=== PATIENT | male | born 1970 | race Caucasian/White ===

== ENCOUNTER 2024-01-13 17:09 | Observation (INO) | payer OTHER, SELFPAY ==
[2024-01-13] VITALS (7 sets, daily range): BP systolic 90–123; BP diastolic 62–89; BMI 19.9
--- NOTE | 2024-01-13 13:23 | ED.GENMED ---
History of Present Illness
<Hyacinth Castañeda MD, Resident - Last Filed: 01/13/24 15:15>
General
Chief Complaint: Overdose Unintentional
Source: ambulance crew and police
Exam Limitations: non verbal-adult and altered mental status
Time Seen by Provider: 01/13/24 13:22
History of Present Illness
History of Present Illness:
53-year-old male unknown to [facility] the ER, was brought to the hospital by ambulance crew for possible unintentional overdose.
As per nurse and EMS signout, he was found unconscious by his Uber cart driver in the middle of his trip, which prompted Uber cart driver to call the police. Police did a sternal rub for which she was found to be responsive, and then called EMS who then gave
him 2 mg of intranasal Narcan for which the patient became responsive. Upon arrival to the ER patient was minimally responsive to our nurse, and admitted to have used heroin in the past, last use being greater than 2 months ago. He also told that
he had taken his methadone dose today. However when I went to see the patient he was not responsive to me, has muscle twitchings and is irritable. 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
I was not able to obtain any history from the patient.
If applicable-neuro sx onset
Onset of symptoms known: Yes
Date of onset of symptoms: 01/13/24
Time pt last seen normal is known: Yes
Date last time pt seen normal: 01/13/24
Past History
<Hyacinth Castañeda MD, Resident - Last Filed: 01/13/24 15:15>
Past History
ED Past Medical History: Other (Drug use disorder in the past.)
ED Past Surgical History: Other (Unable to obtain.)
Social History
Tobacco: Other (Unable to obtain.)
Family History
Family History: Other (Unable to obtain.)
Review of Systems
<Hyacinth Castañeda MD, Resident - Last Filed: 01/13/24 15:15>
Review of Systems
Unable to obtain full review of systems at this time due to: non-verbal
Other source history: ambulance crew
All Other Systems: Not applicable
Phy Exam
<Hyacinth Castañeda MD, Resident - Last Filed: 01/13/24 15:15>
General Physical Exam
General Presentation: no apparent distress
General Skin: warm and other ([place], no purpling or mottling appearance or pale appearance. Multiple healed ulcers noted on skin.)
General Habitus: normal
General Mental: appears intoxicated and other (Lethargic.)
General Hydration: dry mucous membranes and poor skin turgor
Eye Exam
Eye Exam: PERRL and EOMI
Eye Exam General: abnormal pupil: bilateral (Small but not constricted pupils not reactive to light)
Cardiovascular Exam
Cardiovascular Exam: regular rate/rhythm, no edema, no gallop, no JVD, no murmur and normal peripheral pulses
Heart Sounds: normal
Pulmonary Exam
Pulmonary Exam: lungs clear, no respiratory distress, no rales, no crackles and no rhonchi
Gastrointestinal Exam
Gastrointestinal Exam: normal bowel sounds, non tender, soft, no pulsatile mass and non distended
Neurological Exam
Neurological Exam: non verbal and other (Visible twitchings noted. No spasticity or flaccidity in the limbs.)
[place] Coma Scale
Eye Opening: To Pain
Verbal Response: Incomprehensible
Motor Response: Localizes to Pain
GCS Total Score: 9
Mental
Mental Status: appears sev intoxicated, responds to deep pain and unresponsive
Describe Speech: no response
<Satish Rodas DO - Last Filed: 01/13/24 16:19>
[place] Coma Scale
GCS Total Score: 9
Course
<Hyacinth Castañeda MD, Resident - Last Filed: 01/13/24 15:15>
Orders/Labs/Results
Orders:
Orders
01/13/24 13:28
Alcohol Urgent
Complete Blood Count/With Diff Urgent
Comprehensive Metabolic Panel Urgent
Drug Screen, Urine [Urine Drug Abuse Screen] Urgent
Date Specimen was Collected: 01/13/24
Time Specimen was Collected: 13:27
Fentanyl, Urine Urgent
Serum Drug Screen [S] Urgent
Urinalysis Reflex To Culture Urgent
Date Specimen was Collected: 01/13/24
Time Specimen was Collected: 13:27
Urine Microscopic Reflex Cult Urgent
01/13/24 13:41
Bedside Glucose- Treatment ONCE
Alcohol Stat
01/13/24 13:44
CT Head W/o Iv Contrast Stat
Comment:
Reason For Exam: unresponsive
01/13/24 13:46
Add On- LAB Urgent
Tests Added?: alcohol level
01/13/24 14:48
Add On- LAB Urgent
Tests Added?: alcohol
Abnormal Lab Results
01/13/24
13:28
RBC 4.23 L 10^6/uL
(4.70-6.10)
Hgb 12.2 L g/dL
(13.0-18.0)
Hct 35.0 L %
(39.0-52.0)
Monocytes % 10.7 H %
(1.7-9.3)
BUN 23 H mg/dl
(9-20)
Ur Occult Blood Reflex Trace A
(Negative)
Urine Methadone Screen Positive H
(Negative)
U Benzodiazepines Scrn Positive H
(Negative)
01/13/24 13:28
01/13/24 13:28
Vital Signs
Initial and Last Documented VS:
Initial Vital Signs
Temp Pulse Resp BP Pulse Ox
97.6 F 57 16 105/72 97
01/13/24 13:08 01/13/24 13:08 01/13/24 13:08 01/13/24 13:08 01/13/24 13:08
Last Documented Vital Signs
Temp Pulse Resp BP Pulse Ox
97.6 F 58 19 112/77 98
01/13/24 13:08 01/13/24 15:44 01/13/24 15:44 01/13/24 15:44 01/13/24 15:44
Comment
Comment:
Patient continues to remain unresponsive.
His vital signs are stable, pupils are still small-3 mm but not constricted. Sluggish reaction to light
Blood glucose [id number]-xb-care-normal.
Urine toxic drug screen positive for methadone and benzodiazepines.
Myoclonic jerks noted. -CT head obtained.
Hospital medicine consulted for admission.
<Satish Rodas, DO - Last Filed: 01/13/24 16:19>
Orders/Labs/Results
Orders:
Orders
01/13/24 13:28
Alcohol Urgent
Complete Blood Count/With Diff Urgent
Comprehensive Metabolic Panel Urgent
Drug Screen, Urine [Urine Drug Abuse Screen] Urgent
Date Specimen was Collected: 01/13/24
Time Specimen was Collected: 13:27
Fentanyl, Urine Urgent
Serum Drug Screen [S] Urgent
Urinalysis Reflex To Culture Urgent
Date Specimen was Collected: 01/13/24
Time Specimen was Collected: 13:27
Urine Microscopic Reflex Cult Urgent
01/13/24 13:41
Bedside Glucose- Treatment ONCE
Alcohol Stat
01/13/24 13:44
CT Head W/o Iv Contrast Stat
Comment:
Reason For Exam: unresponsive
01/13/24 13:46
Add On- LAB Urgent
Tests Added?: alcohol level
01/13/24 14:48
Add On- LAB Urgent
Tests Added?: alcohol
Abnormal Lab Results
01/13/24
13:28
RBC 4.23 L 10^6/uL
(4.70-6.10)
Hgb 12.2 L g/dL
(13.0-18.0)
Hct 35.0 L %
(39.0-52.0)
Monocytes % 10.7 H %
(1.7-9.3)
BUN 23 H mg/dl
(9-20)
Ur Occult Blood Reflex Trace A
(Negative)
Urine Methadone Screen Positive H
(Negative)
U Benzodiazepines Scrn Positive H
(Negative)
01/13/24 13:28
01/13/24 13:28
Vital Signs
Initial and Last Documented VS:
Initial Vital Signs
Temp Pulse Resp BP Pulse Ox
97.6 F 57 16 105/72 97
01/13/24 13:08 01/13/24 13:08 01/13/24 13:08 01/13/24 13:08 01/13/24 13:08
Last Documented Vital Signs
Temp Pulse Resp BP Pulse Ox
97.6 F 58 19 112/77 98
01/13/24 13:08 01/13/24 15:44 01/13/24 15:44 01/13/24 15:44 01/13/24 15:44
<Hyacinth Castañeda MD, Resident - Last Filed: 01/13/24 15:15>
MDM/Problems Addressed
Chronic conditions affecting care:
Unknown chronic conditions
Acute Exacerbation and/or Progression of Chronic Illness:
Unknown chronic conditions
<Hyacinth Castañeda MD, Resident - Last Filed: 01/13/24 15:15>
*Critical Care Note
Total Time (30-74mins, 75-104mins- exclusive of procedures): Not Applicable
<Hyacinth Castañeda MD, Resident - Last Filed: 01/13/24 15:15>
Comment
Comment:
Highly likely.
<Hyacinth Castañeda MD, Resident - Last Filed: 01/13/24 15:15>
Update Note
Update Note:
Hospital medicine consulted for admission.
ED Attending Note
<Hyacinth Castañeda MD, Resident - Last Filed: 01/13/24 15:15>
-
Portions of this chart may have been created with voice recognition software.� Occasional wrong word or��sound alike� substitutions may have occurred due to the inherent limitations of voice recognition software.
<Satish Rodas, - Last Filed: 01/13/24 16:19>
ED Attending Note
Patient seen and examined by attending physician: Yes
I performed the substantive portion of visit, reviewed & personally made and approve the management plan that is documented in note by myself or LEAH.: Yes
I performed a history and physical exam of patient and discussed management with resident, I reviewed resident's note and agree with documented findings and plan of care.: Yes
ED Attending Note:
I evaluated the patient at bedside approximately 20 minutes after patient arrival. The patient's pupils are approximately 3 mm but sluggish. He reportedly did have methadone and then became minimally responsive while in an Uber earlier. He did
receive intranasal Narcan prior to arrival. Blood sugar upon arrival was unremarkable. I look for old records in [employer] but he has never been here in the past. He also has some abnormal myoclonic jerking�CT imaging also to be obtained. On
reassessment at about 3:45 PM, there has been some improvement but still not well enough to be discharged.
Discharge Plan
Departure
Patient Disposition: Admit
Date of Disposition: 01/13/24
Time of Disposition: 15:14
Presentation/result/management discussed w/ accepting MD/DO: Hospitalist
Discharge Problem:
Accidental drug overdose
Interventions
Interventions:
*Risk Screen - Suicide Last Done: 01/13/24 13:22
*General Assessment Last Done: 01/13/24 13:21
*Neglect/Abuse Screening Last Done: 01/13/24 13:22
*ED COVID-19 Vaccine History Last Done: 01/13/24 13:21
ED- Cardiac Assessment Last Done: 01/13/24 13:22
ED- Neurological Assessment Last Done: 01/13/24 13:22
ED-Psychological Assessment Last Done: 01/13/24 13:22
ED- Pulmonary Assessment Last Done: 01/13/24 13:22
Discharge Date and Time
Print Language: TAJIK
[2024-01-13 13:43] LABS: % Basophils 0.3 % (0-2); % Eosinophils 5.5 % (0-6); % Immature Granulocytes 0.2 % (0-0.5); % Lymphocytes 30.3 % (20.5-51.1); % Monocytes 10.7 % (1.7-9.3); Absolute Eosinophils 0.3 10^3/uL (0-0.7); Absolute Lymphocytes 1.8 10^3/uL (1.2-3.4); Absolute Monocytes 0.6 10^3/uL (0.1-0.6); Absolute Neutrophils 3.1 10^3/uL (1.4-6.5); Hemoglobin 12.2 g/dL (13.0-18.0); Mean Corp Hgb Conc. 34.9 g/dL (33.0-37.0); Mean Corpuscular Hgb 28.8 pg (27.0-31.0); Mean Corpuscular Volume 82.7 fL (80.0-94.0); Mean Platelet Volume 9.5 fL (7.4-10.4); Nucleated Red Blood Cells % 0 % (-); Platelet Count 262 10^3/uL (130-400); Red Blood Cell Count 4.23 10^6/uL (4.70-6.10); Red Cell Dist. Width 12.6 % (11.5-14.5); White Blood Cell Count 5.8 10^3/uL (4.8-10.8)
[2024-01-13 13:52] LABS: Glucose - Point of Care 98 mg/dl (70-99)
[2024-01-13 14:08] LABS: Benzodiazepines Positive (Negative); Methadone Positive (Negative)
[2024-01-13 14:09] LABS: Amphetamines Negative (Negative); Barbiturates Negative (Negative)
[2024-01-13 14:10] LABS: Buprenorphine Negative (Negative); Cocaine Negative (Negative); Marijuana Negative (Negative); Methamphetamines Negative (Negative); Opiates Negative (Negative); Phencyclidine Negative (Negative); Tricyclic Antidepressants Negative (Negative)
[2024-01-13 14:14] LABS: Urine Albumin Negative (Neg - Trace); Urine Bilirubin Negative (Negative); Urine Character Clear (Clear); Urine Color Yellow; Urine Glucose Negative (Negative); Urine Ketone Negative (Negative); Urine Leukocyte Negative (Negative); Urine Nitrite Negative (Negative); Urine Occult Blood Trace (Negative); Urine Specific Gravity 1.025 (<1.030); Urine Urobilinogen Negative (Neg - 1+)
[2024-01-13 14:29] LABS: Fentanyl, Urine Negative (Negative)
[2024-01-13 14:33] LABS: ALT (SGPT) 22 U/L (0-50); AST (SGOT) 37 U/L (17-59); Albumin 4.4 g/dl (3.5-5.0); Alkaline Phosphatase 60 U/L (38-126); Blood Urea Nitrogen 23 mg/dl (9-20); Calcium 10.1 mg/dl (8.4-10.2); Carbon Dioxide 27 mmol/L (22-30); Chloride 101 mmol/L (98-107); Estimated Creatinine Clearance 86 ml/min; Glucose 96 mg/dl (70-99); Potassium 4.8 mmol/L (3.5-5.1); Sodium 138 mmol/L (135-145); Total Bilirubin 0.7 mg/dl (0.2-1.3); Total Protein 7.4 g/dl (6.3-8.2); Urine Red Blood Cell 0-2 /HPF (0-2); Urine White Cell 0-2 /HPF (0-5); eGFR > 60.00
[2024-01-13 15:16] LABS: Alcohol None Detected
--- NOTE | 2024-01-13 15:24 | PHANOTE ---
med rec note- patient currently not filling anything, last filled Eliquis bid for 36 day in August 2023. patient has no ecw and currently not answering question
--- NOTE | 2024-01-13 18:08 | HPS.HSE ---
Addendum entered and electronically signed by Guille Draper MD 01/13/24 21:00:
Attending Addendum-
I performed a history and physical exam of the patient and discussed his management with the resident. I reviewed the resident's note and agree with the documented findings and plan of care CC/HPI- Brought to ED via EMS secondary to unresponsive
episode in uber. Patient minimally responsive on questioning but arousable. States he took his prescribed meds of gabapentin and methadone and nothing else. Full 12 point ROS reviewed and negative except as documented- limited due to LOC Exam-
vitals reviewed in EMR GEN-NAD heart bradycardic lungs clear abd soft LE no edema Neuro Ox3 pinpoint pupils, arms- track douglas throughout
Plan:
#Unresponsive Episode/Likely Opioid OD
- narcan given in field
- a little more responsive
- urine tox with benzo and methadone rest pending
- states he takes methadone and is prescribed [facility] 60mg daily
- PDMP shows only [place]
- start COWS
- verify meds
- t/c microdosing ED protocol Suboxone
- check EKG
- monitor closely
- DVTp SCDs
high risk AMA
# H/O Craniotomy
- unclear cause
Time spent coordinating care, review of plan of care with resident, personally reviewed previous records in EMR, med rec, labs, radiology, d/w nursing, family �- 75 mins
Original Note:
Family Physician
-
Family Physician: * Jing Moses
Chief Complaint
-
Drug Overdose
History of Present Illness
53-year-old male brought into the ED by ambulance for possible unintentional drug overdose. As per nurse and EMS signout, the patient went unconscious in the middle of an Uber car ride. [employer] called the police. Police did sternal rub and patient
was unresponsive so they called EMS. EMS gave 2 mg intranasal Narcan. Patient became minimally responsive and was brought to ED. Upon arrival patient was minimally responsive to a nurse and admitted to using heroin in the past with last use
greater than 2 months ago. He was minimally verbal during our physical exam and also stated he takes methadone 60 mg once daily at home, and unclear dose of gabapentin. He was prescribed these medications at the [facility] in [place]. Full
HPI unable to obtain as patient was minimally responsive.
Medical History
Past Medical History
Past Medical History: Reports Other (Unable to complete as patient is unresponsive)
Additional Past Medical History:
Unknown, patient unresponsive
Past Surgical History: Reports Other (Unable to complete as patient is unresponsive)
Additional Past Surgical History:
Unknown, patient unresponsive
Social History
Unable to obtain full social history at this time due to: Other (Unresponsive due to drug overdose)
Drug: Other (Admitted to former heroin use)
Family History
Family History: Unable to Obtain and Other
Allergies / Home Medications
Allergies reflects when Allergies were last updated in [email or web address].
Home Medications with original date entered in [email or web address]
Allergy/Medication List:
Unable to complete as patient is unresponsive
If medication reconciliation has not been performed, why?: Unresponsive
Review of Systems
-
Unable to obtain full review of systems at this time due to: Other (Unresponsive)
Physical Exam
Vital Signs
Vital Signs
Temp Pulse Resp BP Pulse Ox
97.6 F 49 13 105/74 95
01/13/24 13:08 01/13/24 17:45 01/13/24 17:45 01/13/24 16:00 01/13/24 17:45
Physical Exam
General: Other (Lethargic, unresponsive, twitching, )
HEENT: Other (Pin point pupils, reactive to light)
Respiratory: Clear
Cardiac: S1/S2 and Regular Rhythm
GI: Soft, Normal Bowel Sounds and Other (Unable to asses if tender as pt unresponsive)
Musculoskeletal: No Edema
Skin: Other (track douglas/scarring from prior IV drug use, IV site on L arm bandaged, Dry mucous membranes, decreased skin turgor, normal capillary refills and peripheral pulses)
Neuro: No Awake, Alert or Oriented
Laboratory Results
-
01/13/24 13:28
01/13/24 13:28
Laboratory Results
Total Bilirubin 0.7 mg/dl (0.2-1.3) 01/13/24 13:28
AST 37 U/L (17-59) 01/13/24 13:28
ALT 22 U/L (0-50) 01/13/24 13:28
Alkaline Phosphatase 60 U/L (38-126) 01/13/24 13:28
Impression/Plan
-
IMPRESSION:
53-year-old male presenting with drug overdose, potentially unintentional. Known prior heroin use, and regular methadone use. Urine tox positive for methadone, benzodiazepine, others pending. Unable to get full HPI as patient was nonresponsive.
PLAN:
# Drug overdose
Urine tox (+) benzodiazepine and methadone, Many results still pending
Patient admits to prior heroin use, multiple track douglas, on methadone
Pinpoint pupils
Dmitry score 12 (spont opens eyes, confused, withdrawn from pain)
Head CT revealed no acute intracranial abnormalities
Patient stated he receives [facility]one from [facility]
PDMP shows he only gets daridorexant from the [facility] in [facility]
Last prescription filled 11/13 for daridorexant 50mg qd for 30 days
COWS protocol
EKG to evaluate long QT
1 L normal saline
Continue home methadone dose, 60 mg once daily
Retake HPI when patient is responsive
Observation overnight
#DVT
-SCD until further history can be taken
#Full Code
--- NOTE | 2024-01-13 19:41 | W.PN.UPDATE ---
Addendum entered and electronically signed by Guille Draper MD 01/13/24 21:01:
Read reviewed and agree. D/W delinquent tax collection assistant resident at great length
AMA
Derrick Draper MD
Original Note:
Update Note
Progress Note Update
#patient leaving AMA
-ED nurse contacted me stating pt wanted to leave AMA
-Went down to see the pt and he was AAOx3, aware that he came into the ED because he was unresponsive
-Evasive upon further questioning as to why he passed out
-Mom was in the room
-I told him he could have a serious complication including if he left and we highly recommend against it
-I also told him insurance may not cover his ED time
-He verbalized understanding and asked for paper work to leave regardless
-Pt left AMA with mom
-We told the pt he is welcome back any time if he starts to feel unwell
== END 2024-01-13 19:27 | disposition left against medical advice (07) ==
LOC: ED 17:09
PROVIDERS: Student in an Organized Health Care Education/Training Program; ADMITTING PHYSICIAN Family Medicine; EMERGENCY PHYSICIAN Emergency Medicine
DX: R40.4 Transient alteration of awareness (principal); G25.3 Myoclonus; F11.20 Opioid dependence, uncomplicated; F13.90 Sedative, hypnotic, or anxiolytic use, unspecified, uncomplicated; R00.1 Bradycardia, unspecified
CPT/HCPCS: 70450; 80053; 80306; 80307; 81003; 81015; 82077; 82962; 85025